=== PATIENT | male | born 1995 | race Two or more races ===

== ENCOUNTER 2022-12-06 09:42 | Emergency (ER) | payer SELFPAY ==
[~2022-12-06] VITALS: Ht 172.7 cm; Wt 75.0 kg
[2022-12-06 09:48] VITALS: O2SAT 100
[2022-12-06] MEDS ORDERED: IBUPROFEN 600MG TABLET PO ONE (10:15)
[2022-12-06] MEDS ORDERED: METH-653 MT (11:01)
[2022-12-06] MEDS ORDERED: IBUP-2029 MT (11:01)
[2022-12-06 11:17] VITALS: BP 112/75; PULSE 69; RESP 19; TEMP 98.5
== END 2022-12-06 11:33 | disposition home or self-care (01) ==
LOC: ER 11:19
DX: S20.219A Contusion of unspecified front wall of thorax, initial encounter (principal); V89.2XXA Person injured in unspecified motor-vehicle accident, traffic, initial encounter; Y93.89 Activity, other specified; Y92.89 Other specified places as the place of occurrence of the external cause; Y99.8 Other external cause status
CPT/HCPCS: 71045; 99283